=== PATIENT | female | born 1965 | race Caucasian/White ===

== ENCOUNTER 2016-10-31 14:00 | Emergency (ER) | payer MEDICAID ==
[~2016-10-31] VITALS: Ht 175.3 cm; Wt 106.0 kg
[~2016-10-31 14:00] MED LIST: ATEN-102 PO; CLIN1CAP6 PO; LISI-363 PO; LYRI150C PO; TRAM50TA PO
[2016-10-31 14:07] VITALS: BP 157/90; PULSE 89; RESP 16; TEMP 98.1; O2SAT 98
--- NOTE | 2016-10-31 14:12 | PD ---
HPI . left arm edema and pain x 3 days Chief Complaint: Edema Time Seen by Provider: 14:12 Travel History International Travel<30 days: No Contact w/Intl Traveler<30days: No Traveled to known affect area: No History of Present Illness HPI 51 yr old female with HTN, HLD, nerve damage of left foot, and hx of carotid endarterectomy here with c/o left arm edema and pain x 3 days. Patient noticed area swelling and getting more painful so she decided yesterday she would take a needle and poke it. She tried to squeeze, but nothing came out. Today she is here with pain 7/10 and states the swelling is not improving. She denies any recent injury, trauma, or known insect bite. She states she had a mammogram 2 years ago and is due to have another one in December. She has not noticed any breast masses or any infections around her body. She denies any fever, chills, cold sxs, chest pain, nausea, vomiting, abdominal pain. PFSH Past Medical History Hx Anticoagulant Therapy: No Arthritis: No Asthma: No Autoimmune Disease: No Blood Disorders: No Anxiety: No Depression: No Heart Rhythm Problems: No Cancer: No Cardiovascular Problems: Yes (HTN, CHOL) COPD: No Cerebrovascular Accident: No Diabetes: No Diminished Hearing: No Endocrine: No GERD: No Glaucoma: No Genitourinary: No Headaches: No Hepatitis: No Hiatal Hernia: No Hypertension: Yes Musculoskeletal: Yes (BACK PAIN, OSTEOPOROSIS) Neurologic: No Psychiatric: No Respiratory: No Immunizations Current: Yes Seizures: No Sleep Apnea: No Thyroid Disease: No Ulcer: No ?: Not Menopausal: No : 3 Para: 3 Miscarriage: 0 : 0 Ovarian Cysts: Yes (WITH OVARIES REMOVED) Tubal Ligation: Yes Past Surgical History AICD: No Genitourinary Surgery: Yes (TUBAL 1989) Gynecologic Surgery: Yes (D & C 2004) Hysterectomy: Yes Pacemaker: No Thoracic Surgery: Yes Other Surgery: Yes ("2004,infection removed from under both arms") Social History Alcohol Use: No Tobacco Use: No Substance Use: No Allergies-Medications (Allergen,Severity, Reaction): Coded Allergies: Mushroom (Verified Allergy, Severe, 10/31/16) Reported Meds & Prescriptions Reported Meds & Active Scripts Active Keflex (Cephalexin) 500 Mg Cap 500 Mg PO Q8H Bactrim DS (Sulfamethoxazole-Trimethoprim) 800-160 Mg Tab 1 Tab PO BID Reported Omeprazole 20 Mg Tab 20 Mg PO DAILY Lyrica (Pregabalin) 150 Mg Cap 150 Mg PO BID Lisinopril 20 Mg Tab 20 Mg PO DAILY Atenolol 50 Mg Tab 50 Mg PO DAILY Review of Systems General / Constitutional: No: Fever Eyes: No: Visual changes HENT: No: Headaches Cardiovascular: No: Chest Pain or Discomfort Respiratory: No: Shortness of Breath Gastrointestinal: No: Abdominal Pain Genitourinary: No: Dysuria Musculoskeletal: No: Pain Skin: Positive Other (left arm edema), No Rash Neurologic: No: Weakness Psychiatric: No: Depression Endocrine: No: Polydipsia Hematologic/Lymphatic: No: Easy Bruising Physical Exam Narrative GENERAL: AAO x 3, no acute distress, Well-nourished, well-developed patient. SKIN: Warm and dry. No visible rashes or bruising. left arm edema, warm to touch HEAD: Normocephalic and atraumatic. EYES: No scleral icterus. No injection or drainage. ENT: No nasal drainage noted. Mucous membranes pink. Airway patent. NECK: Supple, trachea midline. No JVD. CARDIOVASCULAR: Regular rate and rhythm without murmurs, gallops, or rubs. RESPIRATORY: Breath sounds equal bilaterally. No accessory muscle use. No rhonchi or rales. GASTROINTESTINAL: Abdomen soft, non-tender, nondistended. EXTREMITIES:Left arm with visible edema, ? 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 No CVA tenderness. PSYCH: AAO x 3, normal affect. Data Data Last Documented VS Vital Signs Date Time Temp Pulse Resp B/P Pulse Ox O2 Delivery O2 Flow Rate FiO2 10/31/16 16:41 78 20 148/79 95 10/31/16 14:07 98.1 Orders Complete Blood Count With Diff (10/31/16 14:21) Comprehensive Metabolic Panel (10/31/16 14:21) Us Arm Soft Tissue (10/31/16 ) Us Arm Venous Doppler (10/31/16 ) Labs Laboratory Tests Test 10/31/16 14:35 White Blood Count 5.3 TH/MM3 Red Blood Count 4.71 MIL/MM3 Hemoglobin 13.9 GM/DL Hematocrit 40.3 % Mean Corpuscular Volume 85.6 FL Mean Corpuscular Hemoglobin 29.5 PG Mean Corpuscular Hemoglobin 34.5 % Concent Red Cell Distribution Width 11.7 % Platelet Count 296 TH/MM3 Mean Platelet Volume 7.9 FL Neutrophils (%) (Auto) 53.5 % Lymphocytes (%) (Auto) 32.4 % Monocytes (%) (Auto) 6.2 % Eosinophils (%) (Auto) 7.2 % Basophils (%) (Auto) 0.7 % Neutrophils # (Auto) 2.9 TH/MM3 Lymphocytes # (Auto) 1.7 TH/MM3 Monocytes # (Auto) 0.3 TH/MM3 Eosinophils # (Auto) 0.4 TH/MM3 Basophils # (Auto) 0.0 TH/MM3 CBC Comment DIFF FINAL Differential Comment Sodium Level 142 MEQ/L Potassium Level 4.0 MEQ/L Chloride Level 107 MEQ/L Carbon Dioxide Level 27.0 MEQ/L Anion Gap 8 MEQ/L Blood Urea Nitrogen 14 MG/DL Creatinine 0.69 MG/DL Estimat Glomerular Filtration 90 ML/MIN Rate Random Glucose 106 MG/DL Calcium Level 8.8 MG/DL Total Bilirubin 0.8 MG/DL Aspartate Amino Transf 10 U/L (AST/SGOT) Alanine Aminotransferase 22 U/L (ALT/SGPT) Alkaline Phosphatase 77 U/L Total Protein 6.7 GM/DL Albumin 3.6 GM/DL MDM Medical Decision Making Medical Screen Exam Complete: Yes Emergency Medical Condition: Yes Differential Diagnosis DVT, lymphedema, cellulitis Narrative Course 51 yr old female with HTN, HLD, nerve damage of left foot, and hx of carotid endarterectomy here with c/o left arm edema and pain x 3 days. Patient noticed area swelling and getting more painful so she decided yesterday she would take a needle and poke it. She tried to squeeze, but nothing came out. Today she is here with pain 7/10 and states the swelling is not improving. She denies any recent injury, trauma, or known insect bite. She states she had a mammogram 2 years ago and is due to have another one in December. She has not noticed any breast masses or any infections around her body. Patient seen and examined. Obvious left arm edema. + tenderness and warmth labs ordered as well as soft tissue US and venous doppler 1500: discussed with patient that labs are normal US no acute abn. Discussed with patient and explained this is more than likely start of cellulitis that is not widespread or causing elevated WBC at this point. Will cover with bactrim and keflex. Advised f/u with primary care provider in next 3-5 days. Return to ED if symptoms return or worsen. Diagnosis Primary Impression: Arm edema Additional Impression: Cellulitis of arm, left Patient Instructions: Cellulitis (ED), Edema (ED), General Instructions Additional Instructions: As I discussed, this could be an early cellulitis, therefore I have provided you with antibiotics. Take medications as prescribed. Follow up with your primary care provider in 3-5 days. Return to the emergency department if your symptoms return or worsen. Med/Other Pt SpecificInfo: Prescription(s) given Scripts Cephalexin (Keflex)500 Mg [id number] Mg PO Q8H #21 CAP Ref 0 Prov:Va Angel 10/31/16 Sulfamethoxazole-Trimethoprim (Bactrim DS)800-160 Mg Tab1 Tab PO BID #20 TAB Prov:Va Angel 10/31/16 Disposition: 01 DISCHARGE HOME Condition: Stable Va Angel Oct 31, 2016 14:12
[2016-10-31] MEDS ORDERED: LYRI150C PO (14:24)
[2016-10-31] MEDS ORDERED: OMEP20TA PO (14:24)
[2016-10-31] MEDS ORDERED: LISI-515 PO (14:24)
[2016-10-31] MEDS ORDERED: ATEN50TA PO (14:24)
[2016-10-31 14:44] LABS: AUTOMATED NEUTROPHIL # 2.9 TH/MM3 (1.8-7.7); BASOPHIL % 0.7 % (0.0-2.0); EOSINOPHIL # 0.4 TH/MM3 (0-0.4); EOSINOPHIL % 7.2 % (0.0-4.0); HEMATOCRIT 40.3 % (35.0-46.0); HEMO FLAGS DIFF FINAL; LYMPH % 32.4 % (9.0-44.0); LYMPHOCYTE # 1.7 TH/MM3 (1.0-4.8); MEAN CELL VOLUME 85.6 FL (80.0-100.0); MEAN CORPUSCULAR HEMOGLOBIN 29.5 PG (27.0-34.0); MEAN CORPUSCULAR HGB CONC 34.5 % (32.0-36.0); MONO % 6.2 % (0.0-8.0); NEUT % 53.5 % (16.0-70.0); PLATELET COUNT 296 TH/MM3 (150-450); RED BLOOD COUNT 4.71 MIL/MM3 (4.00-5.30); RED CELL DISTRIBUTION WIDTH 11.7 % (11.6-17.2); WHITE BLOOD COUNT 5.3 TH/MM3 (4.0-11.0)
[2016-10-31 14:52] LABS: CHLORIDE 107 MEQ/L (98-107); SODIUM (NA) 142 MEQ/L (136-145)
[2016-10-31 14:56] LABS: ANION GAP 8 MEQ/L (5-15); BLOOD UREA NITROGEN 14 MG/DL (7-18)
[2016-10-31 14:59] LABS: ALT (GPT) 22 U/L (10-53); AST (GOT) 10 U/L (15-37); GLOMERULAR FILTRATION RATE 90 ML/MIN (>89)
[2016-10-31 15:01] LABS: TOTAL BILIRUBIN ADULT 0.8 MG/DL (0.2-1.0)
[2016-10-31 15:02] LABS: ALKALINE PHOSPHATASE 77 U/L (45-117)
--- NOTE | 2016-10-31 16:18 | RADHPO ---
EXAM DATE/TIME: 10/31/2016 15:36 [facility] COMPARISON: No previous studies available for comparison. INDICATIONS : Left upper arm swelling. MEDICAL HISTORY : Hypercholesterolemia. Gastroesophageal reflux disease. Osteoporosis. CAD. Hypertension. Ovarian cysts . SURGICAL HISTORY : Hysterectomy. Tubal ligation. D&C. Oophrectomy, bilateral. ENCOUNTER: Initial ACUITY: 3 days PAIN SCORE: 4/10 LOCATION: Left arm. AREA EVALUATED: Left upper arm. FINDINGS: MASSES: None. FLUID COLLECTIONS: None. OTHER: Negative. CONCLUSION: 1. No focal sonographic abnormalities identified in the area of left upper arm swelling. Enrike Tavarez MD on October 31, 2016 at 16:16 Board Certified Radiologist. This report was verified electronically.
[2016-10-31] MEDS ORDERED: CEPH-460 PO (16:21)
[2016-10-31] MEDS ORDERED: BACT800T5 PO (16:21)
[2016-10-31 16:41] VITALS: BP 148/79
--- NOTE | 2016-10-31 16:44 | RADHPO ---
EXAM DATE/TIME: 10/31/2016 15:27 [facility] COMPARISON: No previous studies available for comparison. INDICATIONS : Left arm pain and swelling. MEDICAL HISTORY : Hypercholesterolemia. Gastroesophageal reflux disease. Osteoporosis. CAD. Hypertension. Ovarian cysts . SURGICAL HISTORY : Tubal ligation. Hysterectomy. D&C. Oophrectomy, bilateral. ENCOUNTER: Initial ACUITY: 3 days PAIN SCORE: 4/10 LOCATION: Left arm. FINDINGS: There is spontaneous flow documented in the brachial, basilic, cephalic, axillary, and subclavian vei ns. The vessels are compressible and augmentation response is documented. No filling defects are se en. The flow is phasic with respiration. Direction of flow in the jugular vein is caudal. CONCLUSION: Normal examination. Enrike Tavarez MD on October 31, 2016 at 16:42 Board Certified Radiologist. This report was verified electronically.
== END 2016-10-31 16:43 | disposition home or self-care (01) ==
LOC: PHEFT 14:00
DX: E78.5 Hyperlipidemia, unspecified (principal); I10 Essential (primary) hypertension; L03.114 Cellulitis of left upper limb
CPT/HCPCS: 76882; 80053; 85025; 93971